=== PATIENT | male | born 1980 | race American Indian/Alaskan Native ===

== ENCOUNTER 2019-11-02 09:41 | Outpatient (CLI) | payer OTHER ==
--- NOTE | 2019-11-02 10:56 | Cat Scan Report ---
CT HEAD WITHOUT CONTRAST INDICATION / CLINICAL INFORMATION: Z01.89Encounter for other specified special examinations. TECHNIQUE: Axial imaging performed from the skull apex through the skull base without the use of cont rast. Sagittal and coronal reformatted images. All CT scans at this location are performed using CT dose reduction for ALARA by means of automated exposure control. COMPARISON: None available. FINDINGS: CEREBRAL PARENCHYMA: No significant abnormality. No acute territorial infarct. HEMORRHAGE: None. EXTRA-AXIAL SPACES: Normal in size and morphology for the patient's age. VENTRICULAR SYSTEM: Normal in size and morphology for the patient's age. MIDLINE SHIFT OR HERNIATION: None. CEREBELLUM / BRAINSTEM: No significant abnormality. CALVARIUM: No significant abnormality. ORBITS: Normal as visualized. PARANASAL SINUSES / MASTOID AIR CELLS: Moderate mucosal thickening is noted in the superior right max illary sinus. 1 cm mucous retention cyst versus polyp is noted in the left maxillary sinus. SOFT TISSUES of HEAD: No significant abnormality. ADDITIONAL FINDINGS: None. IMPRESSION: Unremarkable CT of the brain parenchyma. Maxillary sinus disease as described which is incompletely imaged. Signer Name: Mango Fields Jr, MD Signed: 11/02/2019 10:51 AM Workstation Name: [id number]
== END 2019-11-02 09:42 | disposition home or self-care (01) ==
LOC: CT 09:41
DX: Z01.89 Encounter for other specified special examinations (principal); J34.89 Other specified disorders of nose and nasal sinuses
CPT/HCPCS: 70450